=== PATIENT | male | born 1990 | race African-American/Black ===

== ENCOUNTER 2017-10-08 22:34 | Emergency (ER) | payer SELFPAY ==
[~2017-10-08] VITALS: Ht 172.7 cm; Wt 71.0 kg
[~2017-10-08 22:34] MED LIST: Z.0.NO CURRENT MEDS
[2017-10-08 22:46] VITALS: BP 140/63; PULSE 96; RESP 16; TEMP 98.7; O2SAT 99
--- NOTE | 2017-10-08 22:57 | PD ---
HPI Chief Complaint: Injury Time Seen by Provider: 22:50 Travel History International Travel<30 days: No Contact w/Intl Traveler<30days: No Traveled to known affect area: No History of Present Illness HPI 26-year-old male presents for evaluation of left great toe injury. Reports a prior to arrival he was bending his left foot and leg back and his left great toe grazed against the carpet and it pulled his toenail off the nailbed. He now has pain which is mild aching pain, constant, aggravated by injury with no relieving factors. No associated signs or symptoms. Symptom onset 20 minutes ago. Denies any other injuries. Last tetanus vaccination unknown. No other complaints. PFSH Past Medical History Medical History: Denies Significant Hx Diminished Hearing: No Immunizations Current: Yes Tetanus Vaccination: Unknown Past Surgical History Surgical History: No Previous Surgery Social History Alcohol Use: No Tobacco Use: No Substance Use: Yes (Marijuana) Allergies-Medications (Allergen,Severity, Reaction): Coded Allergies: No Known Allergies (Verified , 08/17/12) Reported Meds & Prescriptions Reported Meds & Active Scripts Active Reported No Current Meds (Miscellaneous Medication) Misc Review of Systems Musculoskeletal: Positive: Pain Skin: Positive Other (Positive for bleeding) Neurologic: No: Weakness, Paresthesia Physical Exam Narrative GENERAL: Well-nourished male no acute distress SKIN: Warm and dry. CARDIOVASCULAR: Regular rate and rhythm. No murmur appreciated. RESPIRATORY: No accessory muscle use. Clear to auscultation. Breath sounds equal bilaterally MUSCULOSKELETAL: The left great toenail was avulsed off of the nailbed. It is still intact at the root. There is some bleeding. The nailbed is intact. There is no laceration. Sensation is preserved. Data Data Last Documented VS Vital Signs Date Time Temp Pulse Resp B/P (MAP) Pulse Ox O2 Delivery O2 Flow Rate FiO2 10/08/17 22:46 98.7 96 16 140/63 (88) 99 Orders Orders Toe (Min 2vws) (10/08/17 ) Tetanus/Diphtheria Tox Adult (Tetanus/Di (10/08/17 23:00) Lidocaine 1% Inj (Xylocaine 1% Inj) (10/08/17 23:00) Lidocaine Pf 2% Inj (Xylocaine-Mpf 2% In (10/08/17 23:03) Ed Discharge Order (10/08/17 23:15) [facility] Medical Decision Making Medical Screen Exam Complete: Yes Emergency Medical Condition: Yes Medical Record Reviewed: Yes Differential Diagnosis Toenail avulsion, nail bed laceration, fracture Narrative Course The toenail has been avulsed off of the nailbed and will be removed after a digital block is performed, the patient verbally consents. Tetanus status updated. Toe x-ray performed. The patient refuses x-ray. He understands that subtle fracture cannot be diagnosed without an x-ray. Toenail removal: The left great toe was prepped with Betadine. Digital block performed with 2% lidocaine. The nail was retracted and cut away using scissors. Local wound care provided. Patient tolerated procedure well. Diagnosis Primary Impression: Toenail avulsion Additional Instructions: Wash the wound twice a day with soap and water and apply antibiotic cream daily. The nail will regrow over the next 6-12 months. Med/Other Pt SpecificInfo: Wound Care Disposition: 01 DISCHARGE HOME Condition: Stable Roger Mendoza Oct 08, 2017 22:57
[2017-10-08] MEDS ORDERED: TETANUS/DIPHTHERIA TOXOID ADULT 0.5 ML VIAL IM ONE (23:00)
[2017-10-08] MEDS ORDERED: LIDOCAINE HCL 1% 30 ML VIAL INFIL ONE (23:00)
[2017-10-08] MEDS ORDERED: LIDOCAINE HCL 2% PF 10 ML VIAL ONE (23:03)
== END 2017-10-08 23:30 | disposition home or self-care (01) ==
LOC: NEPD 22:34
DX: S91.202A Unspecified open wound of left great toe with damage to nail, initial encounter (principal); F12.90 Cannabis use, unspecified, uncomplicated; Z23 Encounter for immunization; X50.9XXA Other and unspecified overexertion or strenuous movements or postures, initial encounter
CPT/HCPCS: 11730; 90471; 90714